=== PATIENT | male | born 1980 | race Hispanic/Latino ===

== ENCOUNTER 2018-12-05 14:22 | Emergency (ER) | payer BC ==
[~2018-12-05 14:22] MED LIST: Iopamidol 370 76% 100 ML VIAL ONE
[2018-12-05 14:53] LABS: #Basophils 0.1 thou/uL (0.0-0.2); #Eosinphils 0.1 thou/uL (0.0-0.7); #Lymphocytes 1.9 thou/uL (1.20-3.40); #Monocytes 0.3 thou/uL (0.11-0.59); #Neutrophils 3.2 thou/uL (1.40-6.50); %Basophils 1.2 % (0.0-1.0); %Eosinophils 2.3 % (0.0-10.0); %Monocytes 5.6 % (0.0-10.0); Hemoglobin 16.2 g/dL (14.0-18.0); Mean Corpuscular HGB CONC 31.4 g/dL (32.0-36.0); Mean Corpuscular Hemoglobin 27.3 pg (27.0-31.0); Mean Corpuscular Volume 87.1 fL (78.0-98.0); Mean Platelet Volume 7.5 fL (7.4-10.4); Platelet Count 229 thou/uL (130-400); RBC Distribution Width 12.7 % (11.5-14.5); Red Blood Cell (RBC) Count 5.91 mill/uL (4.70-6.10); White Blood Cell (WBC) Count 5.5 thou/uL (4.8-10.8)
[2018-12-05 15:08] LABS: ALT (SGPT) 68 U/L (8-55); AST (SGOT) 34 U/L (5-34); Albumin 4.7 g/dL (3.5-5.0); Alkaline Phosphatase 67 U/L (40-150); Anion Gap 16 mmol/L (10-20); BUN (Urea Nitrogen) 18 mg/dL (8.9-20.6); Bilirubin, Total 0.5 mg/dL (0.2-1.2); Calc. Creatinine Clearance 0 mL/min (70-130); Calcium 10.7 mg/dL (7.8-10.44); Carbon Dioxide 26 mmol/L (22-29); Chloride 104 mmol/L (98-107); Estimated GFR-MDRD 80; Globulin 3.1 g/dL (2.4-3.5); Glucose 76 mg/dL (70-105); Lipase 42 U/L (8-78); Potassium 4.3 mmol/L (3.5-5.1); Protein, Total 7.8 g/dL (6.0-8.3); Sodium 142 mmol/L (136-145)
[2018-12-05] MEDS ORDERED: cefTRIAXone\\ROCEPHIN 1 GM VIAL ONE (15:17)
[2018-12-05] MEDS ORDERED: Adacel (T-DAP) 0.5 ML SYRINGE ONE (15:23)
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
== END 2018-12-05 15:32 | disposition home or self-care (01) ==
LOC: BURERS 14:22
DX: S31.139A Puncture wound of abdominal wall without foreign body, unspecified quadrant without penetration into peritoneal cavity, initial encounter (principal); R73.03 Prediabetes; Z79.84 Long term (current) use of oral hypoglycemic drugs; W29.4XXA Contact with nail gun, initial encounter
CPT/HCPCS: 74177; 80053; 83690; 85025; 90471; 90715; 96374; G0390; J0696; Q9967

== ENCOUNTER 2019-01-20 06:20 | Emergency (ER) | payer BC, OTHER ==
[2019-01-20] MEDS ORDERED: Bacitracin 1 PK ONE (07:02)
[2019-01-20] MEDS ORDERED: Ibuprofen 800 MG TAB ONE (07:02)
[2019-01-20] MEDS ORDERED: HYDROcodone/Acetaminophen 10/325 mg Tablet ONE (07:02)
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
== END 2019-01-20 08:10 | disposition home or self-care (01) ==
LOC: BURERS 06:20
DX: S20.212A Contusion of left front wall of thorax, initial encounter (principal); S61.201A Unspecified open wound of left index finger without damage to nail, initial encounter; E11.9 Type 2 diabetes mellitus without complications; Z79.84 Long term (current) use of oral hypoglycemic drugs; V40.5XXA Car driver injured in collision with pedestrian or animal in traffic accident, initial encounter
CPT/HCPCS: 29125; 71045